=== PATIENT | female | born 1995 | race Caucasian/White ===

== ENCOUNTER 2020-07-02 16:50 | Emergency (ER) | payer OTHER ==
--- NOTE | 2020-07-02 17:05 | EDM.PDOC ---
ED HPI GENERAL MEDICAL PROBLEM - General Chief Complaint: General Stated Complaint: R #4 TOE LACERATION Time Seen by Provider: 07/02/20 17:04 Source of Information: Reports: Patient History Limitations: Reports: No Limitations - History of Present Illness INITIAL COMMENTS - FREE TEXT/NARRATIVE: Laceration near toes due to bed frame. Right Toe-Ring Pain Score (Numeric/FACES): 4 - Related Data Allergies Allergy/AdvReac Type Severity Reaction Status Date / Time No Known Allergies Allergy Verified 07/02/20 16:57 Home Meds: Home Meds . [No Known Home Meds] 07/02/20 [History] Social & Family History - Tobacco Use Tobacco Use Status *Q: Current Every Day Tobacco User Years of Tobacco use: 6 Packs/Tins Daily: 0.3 Second Hand Smoke Exposure: No - Caffeine Use Caffeine Use: Reports: Coffee, Energy Drinks - Recreational Drug Use Recreational Drug Use: No ED ROS GENERAL - Review of Systems Review Of Systems: See Below Skin: Reports: Other (laceration right foot) ED EXAM, GENERAL - Physical Exam Exam: See Below Exam Limited By: No Limitations General Appearance: Alert, Anxious Eye Exam: Bilateral Eye: EOMI, PERRL Ears: Hearing Grossly Normal Throat/Mouth: Normal Lips, Normal Voice, No Airway Compromise Head: Atraumatic, Normocephalic Neck: Supple Respiratory/Chest: No Respiratory Distress Extremities: Normal Range of Motion, Normal Capillary Refill Neurological: Alert, Oriented, No Motor/Sensory Deficits Psychiatric: Normal Affect, Normal Mood Skin Exam: Other (laceration noted between toes 3 and 4. Tendon function appears intact. ) ED GENERAL MEDICAL PROCEDURES - Laceration/Wound Repair Right Distal Foot Lac/wound length in cm: 2 Appearance: Subcutaneous, Linear, Clean Distal NVT: Neuro & Vascular Intact, No Tendon Injury Anesthetic Type: Local Local Anesthesia - Lidocaine (Xylocaine): 1% Plain Local Anesthetic Volume: 3cc Skin Prep: Saline Exploration/Debridement/Repair: Wound Explored, In a Bloodless Field, Explored to Base, No Foreign Material Found Closed with: Sutures Suture Size: 4-0 # of Sutures: 5 Suture Type: Nylon, Interrupted Sterile Dressing Applied: Nurse Tetanus Status Addressed: Yes Complications: No Course - Vital Signs Last Recorded V/S: Last Vital Signs Temp 36.9 C 07/02/20 16:52 Pulse 155 H 07/02/20 16:52 Resp 18 07/02/20 16:52 BP 139/83 07/02/20 16:52 Pulse Ox 100 07/02/20 16:52 - Orders/Labs/Meds Orders: Active Orders 24 hr Category Date Time Status Vaccines to be Administered [RC] PER UNIT ROUTINE Care 07/02/20 17:22 Active Meds: Medications Discontinued Medications Generic Name Dose Route Start Last Admin Trade Name Whitney PRN Reason Stop Dose Admin Diphtheria/Tetanus/Acell Pertussis 0.5 ml 07/02/20 17:22 07/02/20 17:33 Boostrix IM 07/02/20 17:23 0.5 ml .ONCE ONE Administration Lidocaine HCl 5 ml 07/02/20 17:38 07/02/20 18:04 Xylocaine-Mpf 1% INJECT 07/02/20 17:39 5 ml ONETIME ONE Administration Neomycin/Polymyxin/Bacitracin 1 each 07/02/20 18:02 07/02/20 18:05 Triple Antibiotic Oint TOP 07/02/20 18:03 1 each ONETIME ONE Administration - Re-Assessments/Exams Free Text/Narrative Re-Assessment/Exam: Patient drank energy drink prior to arrival and noted to have elevated pulse. Suspect elevation is in part due to the energy drink and also due to laceration/stress of coming to ER. Laceration repaired. Wound care reviewed. Precautions reviewed. Sutures out one week. Tetanus updated. Departure - Departure Time of Disposition: 18:06 Disposition: Home, Self-Care 01 Condition: Good Clinical Impression: Laceration of foot Qualifiers: Encounter type: initial encounter Laterality: right Qualified Code(s): S91.311A - Laceration without foreign body, right foot, initial encounter - Discharge Information *PRESCRIPTION DRUG MONITORING PROGRAM REVIEWED*: Not Applicable *COPY OF PRESCRIPTION DRUG MONITORING REPORT IN PATIENT CHRISTINE: Not Applicable Instructions: Laceration Care, Adult, [id number] Referrals: Maria D Morales PA-C [Primary Care Provider] - Forms: ED Department Discharge, ED Return to Work/School Form Additional Instructions: Wound care as we reviewed. Return for recheck if any signs of infection develop. No work for 72 hours. Keep open to air as much as possible. Keep rotating clean cotton socks to keep foot/toes protected. Soak in wound wash/normal saline or epsom salts if you can't find the other stuff. Put topical antibiotic ointment on wound after you dry it post-soaks. Make appointment for suture removal for next . Sepsis Event Note (ED) - Evaluation Sepsis Screening Result: No Definite Risk - Focused Exam Vital Signs: Vital Signs Temp Pulse Resp BP Pulse Ox 07/02/20 16:52 36.9 C 155 H 18 139/83 100 - My Orders Last 24 Hours: My Active Orders 07/02/20 17:22 Vaccines to be Administered [RC] PER UNIT ROUTINE - Assessment/Plan Last 24 Hours: My Active Orders 07/02/20 17:22 Vaccines to be Administered [RC] PER UNIT ROUTINE
[2020-07-02] MEDS ORDERED: Diphtheria,Pertussis(Acell),Tetanus Vaccine 0.5 ML Syringe IM ONE (17:22)
[2020-07-02] MEDS ORDERED: Bacitracin/Neomycin/Polymyxin B Oint 0.9 GM U/D Packet TOP ONE (18:02)
== END 2020-07-02 18:30 | disposition home or self-care (01) ==
LOC: LL.ED 16:50
DX: S91.311A Laceration without foreign body, right foot, initial encounter (principal); Z23 Encounter for immunization; Z72.0 Tobacco use; W22.8XXA Striking against or struck by other objects, initial encounter
CPT/HCPCS: 12001; 90471; 90715; 99282; 99282-25